=== PATIENT | male | born 1990 | race Caucasian/White ===

== ENCOUNTER 2017-09-09 11:28 | Emergency (ER) | payer OTHER ==
[2017-09-09 11:38] VITALS: BP 110/62; TEMP 98
--- NOTE | 2017-09-09 12:23 | EDPHY ---
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 This injury occurred just prior to arrival. Bleeding was controlled. Last tetanus shot was within last 10 years. Patient denies any other pain or injury. He denies any numbness or tingling in the finger. REVIEW OF SYSTEMS: As in HPI, and all other systems reviewed and are negative Smoking Status: Never smoked Physical Exam: General Appearance: Alert and no distress. Head: Normocephalic, atraumatic Eyes: Pupils equal and round no injection. Extraocular movements are intact. Musculoskeletal: Neck is supple and nontender. Extremities: Left thumb 2 cm flap laceration volar surface of the thumb toward the ulnar side, full extension against resistance, distal sensation intact, distal cap refill less than 2 sec. Skin: No rashes or lesions except as described above. Constitutional: Initial Vital Signs Temperature (C) 36.6 C 09/09/17 11:36 Heart Rate 84 09/09/17 11:36 Respiratory Rate 20 09/09/17 11:36 Blood Pressure 110/62 09/09/17 11:36 O2 Sat (%) 97 09/09/17 11:36 O2 Delivery Mode Room Air Allergies/Adverse Reactions: hydrocodone Allergy (Verified 09/09/17 11:36) Home Medications: Medication Instructions Recorded NK [No Known Home Meds] 09/09/17 MDM/Departure - MDM Procedures: Procedure: Laceration repair. Verbal consent was obtained from the patient. The 2 cm laceration on the left that was anesthetized in the usual fashion with a ring block with good success. The wound was irrigated, draped and explored to its base with a gloved finger. There were no deep structures involved. No tendon injury was identified. The wound was repaired with 5 0 nylon Ethilon sutures x 4. The wound repair was uncomplicated. The procedure was performed by myself. ED Course/Re-evaluation: 27-year-old man with left thumb laceration. Laceration was repaired by myself. We discussed return precautions and signs symptoms of infection. Patient is instructed return in 7-10 days for suture removal. He will follow up with workmen's compensation. - Depart Disposition: Home, Routine, Self-Care Clinical Impression: Laceration Condition: Good Instructions: Finger Laceration (ED) Additional Instructions: You were seen by Dr. Maria G Vasquez today. Keep the dressing on for the 1st 24 hr. You may then wash your hands including the wound with soap and water but do not soak the thumb. Keep the wound covered with a Band-Aid or gauze. Watch for signs and symptoms of infection including but not limited to pus draining from the wound, increased pain or redness, increased swelling red streaking or fever. Have the sutures removed in 7-10 days. Return for any worsening or new concerns. Stand Alone Forms: Work Limited Duty Referrals: NONE *PRIMARY CARE P,. [Primary Care Provider] - As per Instructions
[2017-09-09 12:48] VITALS: PULSE 74; RESP 18; O2SAT 95
== END 2017-09-09 12:34 | disposition home or self-care (01) ==
LOC: CED 11:28
PROC: 0HQGXZZ Repair Left Hand Skin, External Approach (ICD-10-PCS; principal; 2017-09-09)
DX: S61.012A Laceration without foreign body of left thumb without damage to nail, initial encounter (principal); W26.0XXA Contact with knife, initial encounter; Y92.69 Other specified industrial and construction area as the place of occurrence of the external cause; Y99.0 Civilian activity done for income or pay; Y93.89 Activity, other specified